=== PATIENT | female | born 1985 | race Caucasian/White ===

== ENCOUNTER 2021-12-21 16:07 | Emergency (ER) | payer OTHER ==
[~2021-12-21] VITALS: Ht 175.3 cm; Wt 97.5 kg
[2021-12-21] MEDS ORDERED: METF500 PO (16:29)
[2021-12-21] MEDS ORDERED: AMOCLA875 PO (16:30)
== END 2021-12-21 16:31 | disposition home or self-care (01) ==
LOC: ER 16:07
DX: S41.152A Open bite of left upper arm, initial encounter (principal); S41.151A Open bite of right upper arm, initial encounter; S81.852A Open bite, left lower leg, initial encounter; S01.351A Open bite of right ear, initial encounter; F12.90 Cannabis use, unspecified, uncomplicated; W55.01XA Bitten by cat, initial encounter; Y92.9 Unspecified place or not applicable; Z72.0 Tobacco use; Z88.7 Allergy status to serum and vaccine; Z88.2 Allergy status to sulfonamides; Z88.8 Allergy status to other drugs, medicaments and biological substances
CPT/HCPCS: 99282